=== PATIENT | male | born 2000 | race Caucasian/White ===

== ENCOUNTER 2020-02-07 13:13 | Emergency (ER) | payer OTHER ==
[~2020-02-07] VITALS: Ht 190.5 cm; Wt 86.4 kg
[2020-02-07] MEDS ORDERED: PRED10TA23 PO (14:44)
[2020-02-07 14:56] VITALS: BP 118/67
== END 2020-02-07 15:01 | disposition home or self-care (01) ==
LOC: ER 13:14
DX: R06.02 Shortness of breath (principal); R20.0 Anesthesia of skin; Z79.899 Other long term (current) drug therapy
CPT/HCPCS: 99283

== ENCOUNTER 2020-04-23 09:54 | Emergency (ER) | payer OTHER ==
[~2020-04-23] VITALS: Ht 190.5 cm; Wt 90.9 kg
[2020-04-23] MEDS ORDERED: ibuprofen tablet 400 MG TABLET PO ONE (11:10)
--- NOTE | 2020-04-23 11:15 | NUR ---
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
[2020-04-23 11:28] VITALS: BP 123/81
== END 2020-04-23 11:30 | disposition home or self-care (01) ==
LOC: ER 09:54
DX: S62.391A Other fracture of second metacarpal bone, left hand, initial encounter for closed fracture (principal); W21.09XA Struck by other hit or thrown ball, initial encounter; Y93.6A Activity, physical games generally associated with school recess, summer camp and children; Y92.89 Other specified places as the place of occurrence of the external cause; Y99.8 Other external cause status
CPT/HCPCS: 29125; 73130; 99283

== ENCOUNTER 2021-05-17 08:01 | Emergency (ER) | payer OTHER ==
[~2021-05-17] VITALS: Ht 190.5 cm; Wt 85.0 kg
[2021-05-17] MEDS ORDERED: ketorolac trometh. 30mg/ml inj. IM ONE (09:40)
[2021-05-17] MEDS ORDERED: IBUP-1986 PO (10:54)
[2021-05-17 11:24] VITALS: BP 106/77
== END 2021-05-17 11:26 | disposition home or self-care (01) ==
LOC: ER 08:01
DX: M77.8 Other enthesopathies, not elsewhere classified (principal); F17.200 Nicotine dependence, unspecified, uncomplicated; Z72.89 Other problems related to lifestyle; Z79.899 Other long term (current) drug therapy
CPT/HCPCS: 73030; 96372; 99283; J1885

== ENCOUNTER 2022-11-18 02:12 | Emergency (ER) | payer BC, OTHER ==
[~2022-11-18] VITALS: Ht 190.5 cm; Wt 87.2 kg
[~2022-11-18 02:12] MED LIST: IBUP-1986 PO
[2022-11-18 02:26] VITALS: TEMP 98.1
[2022-11-18] MEDS ORDERED: HYDROcodone/acetaminophen 5mg/325mg tablet PO ONE (04:15)
[2022-11-18] MEDS ORDERED: naproxen 500mg tablet PO ONE (04:15)
[2022-11-18 04:26] VITALS: BP 126/74; PULSE 80; RESP 16; O2SAT 98
== END 2022-11-18 04:29 | disposition home or self-care (01) ==
LOC: ER 02:12
DX: K02.9 Dental caries, unspecified (principal)
CPT/HCPCS: 99283

== ENCOUNTER 2023-02-16 00:38 | Emergency (ER) | payer OTHER ==
[~2023-02-16] VITALS: Ht 190.5 cm; Wt 109.1 kg
[2023-02-16] MEDS ORDERED: dexamethasone sod phosphate 10mg/ml inj PO STA (02:26)
[2023-02-16 02:58] VITALS: BP 136/78; PULSE 87; RESP 18; TEMP 97.8; O2SAT 98
== END 2023-02-16 02:59 | disposition home or self-care (01) ==
LOC: ER 00:38
DX: H10.9 Unspecified conjunctivitis (principal); J02.8 Acute pharyngitis due to other specified organisms
CPT/HCPCS: 99283; J1100

== ENCOUNTER 2023-07-19 02:13 | Inpatient (IN) | payer OTHER ==
[~2023-07-19] VITALS: Ht 190.5 cm; Wt 104.0 kg
[2023-07-19] MEDS: ketorolac tromethamine 15mg/ml inj. IV ONE (03:21)
[2023-07-19] MEDS: acetaminophen 1,000mg/100ml IV 100 ML IV ONE (03:21)
[2023-07-19] MEDS ORDERED: magnesium hydroxide 30ml (MOM) UD suspension PO PRN (04:25)
[2023-07-19] MEDS ORDERED: ondansetron 4mg rapidly disintigrating tab PO PRN (04:25)
[2023-07-19] MEDS ORDERED: morphine 2 MG/ML inj. syringe IV PRN (04:25)
[2023-07-19] MEDS ORDERED: mag hydrox/Alum hydrox/simeth 30ml oral suspension PO PRN (04:25)
[2023-07-19] MEDS ORDERED: potassium Cl 20 mEq SR tablet PO PRN ×2 (04:25)
[2023-07-19] MEDS ORDERED: potassium Cl 40MEQ/1/2NS 520ml 520 ML IV PRN (04:25)
[2023-07-19] MEDS ORDERED: magnesium 4gm in 100ml NS 100 ML IV PRN (04:25)
[2023-07-19] MEDS ORDERED: HYDROcodone/acetaminophen 5mg/325mg tablet PO PRN (04:25)
[2023-07-19] MEDS ORDERED: magnesium Cl slow-release 64mg tablet PO PRN (04:25)
[2023-07-19] MEDS ORDERED: acetaminophen 325mg tablet PO PRN (04:25)
[2023-07-19] MEDS ORDERED: ondansetron/PF 4mg/2ml inj IV PRN (04:25)
[2023-07-19] MEDS ORDERED: magnesium 2GM in 50ml NS 50 ML IV PRN (04:25)
[2023-07-19 04:28] LABS: BASOPHILS % (AUTO) 0.2 % (0-1); EOSINOPHILS % (AUTO) 0.1 % (0-6); HEMATOCRIT 43.1 % (42.0-52.0); HEMOGLOBIN 14.5 g/dl (14.0-17.9); LYMPHOCYTES # (AUTO) 1.3 X10'3 (1.1-4.8); LYMPHOCYTES % (AUTO) 10.8 % (21-51); MEAN CORPUSCULAR HEMOGLOBIN 30.3 PG (27.0-31.0); MEAN CORPUSCULAR HGB CONC 33.6 g/dL (33.0-36.5); MEAN CORPUSCULAR VOLUME 90.2 FL (78-98); MEAN PLATELET VOLUME 9.1 FL (7.4-10.4); MONOCYTES % (AUTO) 8.5 % (2-12); NEUTROPHILS # (AUTO) 9.4 X10'3 (1.8-7.7); NEUTROPHILS % (AUTO) 80.4 % (42-75); PLATELET COUNT 200 X10'3 (140-440); RED BLOOD COUNT 4.78 X10'6 (4.70-6.10); RED CELL DISTRIBUTION WIDTH 13.3 % (11.5-14.5); WHITE BLOOD COUNT 11.7 X10'3 (4.5-11.0)
[2023-07-19 04:37] LABS: ANION GAP 13 (8-16); BLOOD UREA NITROGEN 8 MG/DL (7-18); BUN/CREATININE RATIO 9.5 (10.0-20.0); CALCIUM 8.6 MG/DL (8.5-10.1); CHLORIDE 105 MMOL/L (99-107); CREATININE 0.84 MG/DL (0.60-1.10); GLUCOSE 115 MG/DL (70-104); POTASSIUM 3.6 MMOL/L (3.5-5.1); SODIUM 141 MMOL/L (135-145); TOTAL CARBON DIOXIDE 22.9 MMOL/L (24-32); eCRCL 163 ML/MIN; eGFR > 90 ML/MIN
[2023-07-19] MEDS: normal saline 1000ml 1,000 ML IV SCH (05:08)
[2023-07-19] MEDS: morphine 2 MG/ML inj. syringe IV PRN (05:08)
[2023-07-19] MEDS: HYDROcodone/acetaminophen 10/325mg tab PO PRN (06:34)
[2023-07-19] MEDS: docusate sod 100mg capsule PO SCH (06:34)
[2023-07-19] MEDS: K and/or MAG REPLACEMENT MC SCH (06:35)
[2023-07-19 07:16] VITALS: BP 143/74; PULSE 93; RESP 16; TEMP 99; O2SAT 95
[2023-07-19 08:16] LABS: MAGNESIUM 1.9 MG/DL (1.5-2.4)
[2023-07-19 08:18] LABS: APTT 24 SECONDS (22-32); INR 1.1 INR; PROTHROMBIN TIME 11.7 SECONDS (9.0-12.0)
[2023-07-19 10:00] VITALS: BP 137/78; PULSE 92; RESP 18; TEMP 98.6; O2SAT 97
[2023-07-19 18:00] VITALS: BP 122/83; PULSE 81; RESP 14; TEMP 97.7; O2SAT 100
[2023-07-19] MEDS: enoxaparin 40mg/0.4ml syringe SQ SCH (19:16)
[2023-07-19 20:00] VITALS: RESP 14; O2SAT 100
[2023-07-19 22:00] VITALS: BP 136/75; PULSE 93; RESP 18; TEMP 98.3; O2SAT 98
[2023-07-19 23:15] LABS: URINE AMPHETAMINE SCREEN NEGATIVE (Neg); URINE BARBITUATE SCREEN NEGATIVE (Neg); URINE BENZODIAZEPINES SCREEN NEGATIVE (Neg); URINE CANNABINOID SCREEN NEGATIVE (Neg); URINE COCAINE SCREEN NEGATIVE (Neg); URINE METHADONE SCREEN NEGATIVE (Neg); URINE OPIATE SCREEN POSITIVE (Neg); URINE PHENCYCLIDINE SCREEN NEGATIVE (Neg)
[2023-07-20] VITALS (21 sets, daily range): BP systolic 113–147; BP diastolic 59–88; PULSE 64–117; RESP 16–24; TEMP 97.4–98.9; O2SAT 95–100
[2023-07-20 05:53] LABS: BASOPHILS % (AUTO) 0.3 % (0-1); EOSINOPHILS # (AUTO) 0.1 X10'3 (0-0.9); EOSINOPHILS % (AUTO) 1.5 % (0-6); HEMATOCRIT 38.4 % (42.0-52.0); LYMPHOCYTES # (AUTO) 1.7 X10'3 (1.1-4.8); LYMPHOCYTES % (AUTO) 24.8 % (21-51); MEAN CORPUSCULAR HEMOGLOBIN 30.9 PG (27.0-31.0); MEAN CORPUSCULAR HGB CONC 33.9 g/dL (33.0-36.5); MEAN CORPUSCULAR VOLUME 91.1 FL (78-98); MEAN PLATELET VOLUME 9.6 FL (7.4-10.4); MONOCYTES # (AUTO) 0.9 X10'3 (0-0.9); NEUTROPHILS % (AUTO) 59.4 % (42-75); PLATELET COUNT 175 X10'3 (140-440); RED BLOOD COUNT 4.21 X10'6 (4.70-6.10); RED CELL DISTRIBUTION WIDTH 13.5 % (11.5-14.5); WHITE BLOOD COUNT 6.7 X10'3 (4.5-11.0)
[2023-07-20 06:01] LABS: ALANINE AMINOTRANSFERASE 44 U/L (12-78); ALBUMIN 3.4 G/DL (3.4-5.0); ALBUMIN/GLOBULIN RATIO 1.1 (1.1-1.5); ALKALINE PHOSPHATASE 91 IU/L (46-116); ANION GAP 7 (8-16); ASPARTATE AMINO TRANSFERASE 17 U/L (10-37); BLOOD UREA NITROGEN 7 MG/DL (7-18); BUN/CREATININE RATIO 8.4 (10.0-20.0); CALCIUM 8.6 MG/DL (8.5-10.1); CHLORIDE 107 MMOL/L (99-107); CREATININE 0.83 MG/DL (0.60-1.10); GLUCOSE 112 MG/DL (70-104); MAGNESIUM 1.9 MG/DL (1.5-2.4); SODIUM 141 MMOL/L (135-145); TOTAL CARBON DIOXIDE 27.5 MMOL/L (24-32); TOTAL PROTEIN 6.5 G/DL (6.4-8.2); eCRCL 165 ML/MIN; eGFR > 90 ML/MIN
[2023-07-20] MEDS ORDERED: morphine 2 MG/ML inj. syringe IV PRN (12:35)
[2023-07-20] MEDS ORDERED: morphine 4 MG/ML inj SYRINge IV PRN (12:35)
[2023-07-20] MEDS ORDERED: ondansetron/PF 4mg/2ml inj IV PRN (12:35)
[2023-07-20] MEDS ORDERED: meperidine/PF 25mg/ml syringe IV PRN ×3 (12:35)
[2023-07-20] MEDS ORDERED: proCHLORperazine 10 MG/2 ml inj IV PRN (12:35)
[2023-07-20] MEDS ORDERED: labetalol 20mg/4ml (5mg/ml) syringe IV PRN (12:35)
[2023-07-20] MEDS ORDERED: enalaprilat dihydrate 2.5mg/2ml vial IV PRN (12:35)
[2023-07-20] MEDS ORDERED: sevoflurane 250ml liquid IH ONE (13:25)
[2023-07-20] MEDS ORDERED: fentaNYL/PF 50MCG/1 ML 2ML syringe ONE (13:36)
[2023-07-20] MEDS ORDERED: MIDAZolam 1 MG/ML 5ML VIAL ONE (13:36)
[2023-07-20] MEDS ORDERED: fentaNYL /PF 50mcg/ml 5ml ampule ONE (13:47)
[2023-07-20] MEDS ORDERED: LIDOcaine 2% (20mg/ml) 5ml vial ONE (14:05)
[2023-07-20] MEDS ORDERED: propofol inj 20 ML IV ONE (14:05)
[2023-07-20] MEDS ORDERED: BUPIVAcaine/PF 7.5mg/ml (0.75%) 10ml vial ONE (14:05)
[2023-07-20] MEDS ORDERED: ROPIVAcaine 0.5% (5mg/ml) 30ml vial ONE (14:05)
[2023-07-20] MEDS ORDERED: ceFAZolin 1000mg inj ONE ×2 (14:16)
[2023-07-20] MEDS: BUPIVAcaine/PF 5 MG/ML 10ML VIAL SQ ONE (15:23)
[2023-07-20] MEDS ORDERED: ondansetron/PF 4mg/2ml inj ONE (15:31)
[2023-07-20] MEDS ORDERED: ketorolac trometh. 30mg/ml inj. ONE (15:36)
[2023-07-20] MEDS ORDERED: ceFAZolin/D5W- 1GM premix 50 ML IV SCH (16:00)
[2023-07-20] MEDS: BUPIVAcaine/PF 2.5mg/ml (0.25%) 10ml vial ONE (16:06)
[2023-07-20] MEDS: ringers solution, lacted 1,000 ML IV SCH (16:06)
[2023-07-20] MEDS: ceFAZolin/D5W- 1GM premix 50 ML IV SCH (22:24)
[2023-07-21 02:00] VITALS: BP 138/68; PULSE 98; RESP 18; TEMP 98.6; O2SAT 97
[2023-07-21 05:00] VITALS: BP 124/57; PULSE 67; RESP 18; TEMP 97.1; O2SAT 98
[2023-07-21 05:57] LABS: BASOPHILS % (AUTO) 0.2 % (0-1); EOSINOPHILS % (AUTO) 0 % (0-6); HEMOGLOBIN 11.7 g/dl (14.0-17.9); LYMPHOCYTES # (AUTO) 0.6 X10'3 (1.1-4.8); LYMPHOCYTES % (AUTO) 5.1 % (21-51); MEAN CORPUSCULAR HEMOGLOBIN 30.9 PG (27.0-31.0); MEAN CORPUSCULAR HGB CONC 34.5 g/dL (33.0-36.5); MEAN CORPUSCULAR VOLUME 89.4 FL (78-98); MEAN PLATELET VOLUME 10.2 FL (7.4-10.4); MONOCYTES # (AUTO) 0.9 X10'3 (0-0.9); MONOCYTES % (AUTO) 7.7 % (2-12); NEUTROPHILS # (AUTO) 9.8 X10'3 (1.8-7.7); PLATELET COUNT 176 X10'3 (140-440); RED CELL DISTRIBUTION WIDTH 13.1 % (11.5-14.5); WHITE BLOOD COUNT 11.3 X10'3 (4.5-11.0)
[2023-07-21 06:06] LABS: ALANINE AMINOTRANSFERASE 38 U/L (12-78); ALBUMIN 3.2 G/DL (3.4-5.0); ALKALINE PHOSPHATASE 79 IU/L (46-116); ANION GAP 8 (8-16); ASPARTATE AMINO TRANSFERASE 16 U/L (10-37); BILIRUBIN,TOTAL 0.6 MG/DL (0.1-1.0); BLOOD UREA NITROGEN 9 MG/DL (7-18); BUN/CREATININE RATIO 11.4 (10.0-20.0); CALCIUM 8.7 MG/DL (8.5-10.1); CHLORIDE 105 MMOL/L (99-107); CREATININE 0.79 MG/DL (0.60-1.10); GLUCOSE 152 MG/DL (70-104); MAGNESIUM 1.9 MG/DL (1.5-2.4); POTASSIUM 4.2 MMOL/L (3.5-5.1); SODIUM 139 MMOL/L (135-145); TOTAL CARBON DIOXIDE 26.2 MMOL/L (24-32); TOTAL PROTEIN 6.5 G/DL (6.4-8.2); eCRCL 174 ML/MIN; eGFR > 90 ML/MIN
[2023-07-21 08:15] VITALS: RESP 16; O2SAT 99
[2023-07-21] MEDS ORDERED: ACET-1008 PO (09:43)
[2023-07-21] MEDS ORDERED: IBUP-1986 PO (09:44)
[2023-07-21] MEDS ORDERED: ASPI-1265 PO ×2 (09:45→09:46)
[2023-07-21 10:00] VITALS: BP 153/81; PULSE 103; RESP 16; TEMP 97.1; O2SAT 97
[2023-07-21] MEDS ORDERED: HYDR-3965 PO (10:57)
== END 2023-07-21 12:21 | disposition home or self-care (01) | DRG 494 ==
LOC: ER 02:13 → ED HOLD 04:28 → SUR 3N 07:05
PROVIDERS: ADMIT Surgery Surgical Critical Care; ATTEND Internal Medicine
PROC: 3E0T3BZ Introduction of Anesthetic Agent into Peripheral Nerves and Plexi, Percutaneous Approach (ICD-10-PCS; 2023-07-20)
PROC: 3E0T33Z Introduction of Anti-inflammatory into Peripheral Nerves and Plexi, Percutaneous Approach (ICD-10-PCS; 2023-07-20)
PROC: 0QSG06Z Reposition Right Tibia with Intramedullary Internal Fixation Device, Open Approach (ICD-10-PCS; principal; 2023-07-20 13:25)
DX: S82.241A Displaced spiral fracture of shaft of right tibia, initial encounter for closed fracture (principal); S82.891A Other fracture of right lower leg, initial encounter for closed fracture; S82.831A Other fracture of upper and lower end of right fibula, initial encounter for closed fracture; W17.81XA Fall down embankment (hill), initial encounter; Y93.89 Activity, other specified; Y92.89 Other specified places as the place of occurrence of the external cause; Y99.8 Other external cause status; Z79.899 Other long term (current) drug therapy; Z87.891 Personal history of nicotine dependence
CPT/HCPCS: 36415; 73590; 73700; 76000; 80048; 80053; 80305; 82948; 83735; 84132; 85025; 85610; 85730; 86885; 86900; 86901; 87081; 96374; 96375; 97116; 97161; 97530; 99285; A4618; A6222; A6258; A6449; A7000; C1713; G0378; J0131; J0665; J0690; J1100; J1650; J1885; J2250; J2270; J2405; J2704; J2795; J3010; J3490; J7030; J7120

== ENCOUNTER 2024-04-08 13:32 | Emergency (ER) | payer OTHER ==
[~2024-04-08] VITALS: Ht 190.5 cm; Wt 103.8 kg
[~2024-04-08 13:32] MED LIST changes: +ACET-1008 PO; +ASPI-1265 PO; -IBUP-1986 PO
[2024-04-08 13:46] VITALS: TEMP 98.8
[2024-04-08 14:10] LABS: BASOPHILS % (AUTO) 0.5 % (0-1); EOSINOPHILS % (AUTO) 0.7 % (0-6); HEMOGLOBIN 15.3 g/dl (14.0-17.9); LYMPHOCYTES # (AUTO) 1.7 X10'3 (1.1-4.8); LYMPHOCYTES % (AUTO) 30.6 % (21-51); MEAN CORPUSCULAR HEMOGLOBIN 30.3 PG (27.0-31.0); MEAN CORPUSCULAR HGB CONC 34.9 g/dL (33.0-36.5); MEAN CORPUSCULAR VOLUME 86.8 FL (78-98); MEAN PLATELET VOLUME 8.5 FL (7.4-10.4); MONOCYTES # (AUTO) 0.6 X10'3 (0-0.9); MONOCYTES % (AUTO) 9.9 % (2-12); NEUTROPHILS # (AUTO) 3.3 X10'3 (1.8-7.7); NEUTROPHILS % (AUTO) 58.3 % (42-75); PLATELET COUNT 229 X10'3 (140-440); RED BLOOD COUNT 5.07 X10'6 (4.70-6.10); RED CELL DISTRIBUTION WIDTH 13.2 % (11.5-14.5); WHITE BLOOD COUNT 5.6 X10'3 (4.5-11.0)
[2024-04-08 14:30] LABS: ALANINE AMINOTRANSFERASE 54 U/L (12-78); ALBUMIN 4.4 G/DL (3.4-5.0); ALBUMIN/GLOBULIN RATIO 1.3 (1.1-1.5); ALKALINE PHOSPHATASE 97 IU/L (46-116); ANION GAP 12 (8-16); ASPARTATE AMINO TRANSFERASE 23 U/L (10-37); BILIRUBIN,TOTAL 0.8 MG/DL (0.1-1.0); BLOOD UREA NITROGEN 10 MG/DL (7-18); BUN/CREATININE RATIO 11.9 (10.0-20.0); CALCIUM 9.4 MG/DL (8.5-10.1); CHLORIDE 105 MMOL/L (99-107); CREATININE 0.84 MG/DL (0.60-1.10); GLUCOSE 106 MG/DL (70-104); POTASSIUM 3.4 MMOL/L (3.5-5.1); SODIUM 140 MMOL/L (135-145); TOTAL CARBON DIOXIDE 23.1 MMOL/L (24-32); TOTAL PROTEIN 7.7 G/DL (6.4-8.2); eCRCL 162 ML/MIN; eGFR > 90 ML/MIN
[2024-04-08 14:36] LABS: PRO BRAIN NATRIURETIC PEPTIDE 62 PG/ML (0-125)
[2024-04-08 16:09] VITALS: BP 109/79; PULSE 56; RESP 16; O2SAT 99
== END 2024-04-08 16:10 | disposition home or self-care (01) ==
LOC: ER 13:33
DX: R07.89 Other chest pain (principal); Z90.89 Acquired absence of other organs; Z79.82 Long term (current) use of aspirin
CPT/HCPCS: 36415; 71045; 80053; 83880; 84484; 85025; 93005; 99285